=== PATIENT | female | born 1945 | race Caucasian/White ===

== ENCOUNTER 2018-11-03 17:20 | Emergency (ER) | payer OTHER, MEDICAID ==
[~2018-11-03] VITALS: Ht 165.1 cm; Wt 81.6 kg
[~2018-11-03 17:20] MED LIST: ATIVAN0.5 MG; CITALOPRAM20 MG PO; COZAAR50 M1 PO; GOOD NEIGHBOR M25 M1 PO; HYDROCHLOROTHIA25 M1 PO; HYDROCODONE BIT1 T11 PO; IBU800 MG PO; LEVOTHROID0.075 MG; LINZESS145 MC1 PO; LISINOPRIL10 MG; MELOXICAM15 MG PO; NIFEDIPINE ER30 M1 PO; OMEPRAZOLE D/R20 MG; PERCOCET 325 MG1 TA2 PO; PRAVACHOL20 MG; PROCARDIA XL30 MG PO; TRAMADOL HCL50 MG PO; VICO75300; XANAX0.5 MG PO
== END 2018-11-03 17:41 | disposition home or self-care (01) ==
LOC: ED 17:20
DX: S20.161A Insect bite (nonvenomous) of breast, right breast, initial encounter (principal); Z88.6 Allergy status to analgesic agent; Z79.899 Other long term (current) drug therapy; W57.XXXA Bitten or stung by nonvenomous insect and other nonvenomous arthropods, initial encounter; Y93.89 Activity, other specified; Y92.89 Other specified places as the place of occurrence of the external cause; Y99.8 Other external cause status

== ENCOUNTER 2020-08-17 16:32 | Emergency (ER) | payer OTHER, MEDICAID ==
[~2020-08-17] VITALS: Ht 165.1 cm; Wt 72.6 kg
[2020-08-17 20:42] LABS: BASO % 0.8 % (0.0-1.0); EOS % 0.2 % (1.0-4.0); HEMATOCRIT 38.9 % (37.0-47.0); LYMPH # 1.7 10*3/uL (1.3-4.4); LYMPH % 31.6 % (27.0-41.0); MEAN CELL VOLUME 89.2 fl (81.0-99.0); MEAN CORPUSCULAR HGB 28.2 pg (27.0-31.0); MEAN CORPUSCULAR HGB CONC 31.6 g/dl (33.0-37.0); MEAN PLATELET VOLUME 10.1 fl (9.6-12.3); MONO # 0.6 10*3/uL (0.1-1.0); MONO % 11.1 % (3.0-9.0); NEUT % 55.9 % (47.0-73.0); PLATELET COUNT AUTOMATED 211 10*3/uL (130-400); RED BLOOD COUNT 4.36 10*6/uL (4.10-5.10); RED CELL DISTRI WIDTH 13.6 % (0-14.5); WHITE BLOOD COUNT 5.3 10*3/uL (4.8-10.8)
[2020-08-17 20:50] LABS: BILIRUBIN Negative (Negative); BLOOD Negative (Negative); CLARITY Cloudy (Clear); COLOR Dark Yellow (Yellow); GLUCOSE Negative (Negative); KETONE Trace (Negative); LEUKO ESTERASE 2+ (Negative); NITRITE Negative (Negative); PH 5.5 (4.5-8.0); SPECIFIC GRAVITY 1.015 (1.001-1.030); UROBILINOGEN 0.2 E.U./dl (0.0-1.0)
[2020-08-17 20:56] LABS: BACTERIA 1+; RBC 0-2 rbc/hpf (0-2); WBC TNTC wbc/hpf (0-5)
[2020-08-17 20:57] LABS: ALBUMIN 3.1 gm/dl (3.1-4.5); CREATININE 1.35 mg/dL (0.55-1.02); POTASSIUM 3.6 mmol/L (3.5-5.1); TOTAL PROTEIN 7.8 gm/dL (6.4-8.2)
== END 2020-08-18 00:23 | disposition short-term general hospital (02) ==
LOC: ED 16:32
PROVIDERS: Physician Assistant
DX: U07.1 COVID-19 (principal); N20.1 Calculus of ureter; Z98.890 Other specified postprocedural states

== ENCOUNTER → 2020-09-09 | Outpatient (CLI) | payer OTHER, MEDICAID ==
[2020-09-09 18:16] LABS: BASO # 0.1 10*3/uL (0.0-0.1); BASO % 1.6 % (0.0-1.0); EOS # 0.2 10*3/uL (0.0-0.4); EOS % 2.8 % (1.0-4.0); HEMATOCRIT 30.3 % (37.0-47.0); LYMPH # 2.2 10*3/uL (1.3-4.4); LYMPH % 26.9 % (27.0-41.0); MEAN CELL VOLUME 89.6 fl (81.0-99.0); MEAN CORPUSCULAR HGB 28.1 pg (27.0-31.0); MEAN CORPUSCULAR HGB CONC 31.4 g/dl (33.0-37.0); MEAN PLATELET VOLUME 9.4 fl (9.6-12.3); MONO # 0.9 10*3/uL (0.1-1.0); MONO % 10.9 % (3.0-9.0); NEUT # 4.6 10*3/uL (2.3-7.9); NEUT % 56.9 % (47.0-73.0); PLATELET COUNT AUTOMATED 362 10*3/uL (130-400); RED BLOOD COUNT 3.38 10*6/uL (4.10-5.10); RED CELL DISTRI WIDTH 13.2 % (0-14.5); WHITE BLOOD COUNT 8.1 10*3/uL (4.8-10.8)
[2020-09-09 18:30] LABS: BILIRUBIN Negative (Negative); BLOOD 3+ (Negative); CLARITY Cloudy (Clear); COLOR Yellow (Yellow); GLUCOSE Negative (Negative); KETONE Trace (Negative); LEUKO ESTERASE 1+ (Negative); NITRITE Negative (Negative); SPECIFIC GRAVITY 1.025 (1.001-1.030); UROBILINOGEN 0.2 E.U./dl (0.0-1.0)
[2020-09-09 18:45] LABS: ALBUMIN 2.7 gm/dl (3.1-4.5); CREATININE 1.31 mg/dL (0.55-1.02); POTASSIUM 4.1 mmol/L (3.5-5.1); TOTAL PROTEIN 7.7 gm/dL (6.4-8.2)
[2020-09-09 18:49] LABS: BACTERIA 1+; EPITHELIAL CELLS TNTC; RBC TNTC rbc/hpf (0-2)
== END | disposition home or self-care (01) ==
LOC: LAB 17:37
PROVIDERS: ATTEND Urology
DX: Z01.818 Encounter for other preprocedural examination (principal); N39.0 Urinary tract infection, site not specified; J18.9 Pneumonia, unspecified organism

== ENCOUNTER → 2020-09-25 | Outpatient (CLI) | payer OTHER, MEDICAID | END | disposition home or self-care (01) | LOC: RAD 11:08 | PROVIDERS: ATTEND Urology | DX: N20.0 Calculus of kidney (principal); Z96.0 Presence of urogenital implants ==

== ENCOUNTER 2021-10-21 20:13 | Emergency (ER) | payer OTHER, MEDICAID ==
[~2021-10-21] VITALS: Ht 165.1 cm; Wt 81.6 kg
[2021-10-22] MEDS ORDERED: TRAMADOL HCL50 MG PO (00:16)
== END 2021-10-22 00:21 | disposition home or self-care (01) ==
LOC: ED 20:13
DX: S50.02XA Contusion of left elbow, initial encounter (principal); R07.81 Pleurodynia; R07.89 Other chest pain; Z88.8 Allergy status to other drugs, medicaments and biological substances; Z79.899 Other long term (current) drug therapy; Z98.890 Other specified postprocedural states; Z90.49 Acquired absence of other specified parts of digestive tract; Z90.710 Acquired absence of both cervix and uterus; W18.39XA Other fall on same level, initial encounter; Y93.89 Activity, other specified; Y92.89 Other specified places as the place of occurrence of the external cause; Y99.8 Other external cause status

== ENCOUNTER 2021-12-15 21:53 | Emergency (ER) | payer OTHER, MEDICAID ==
[~2021-12-15] VITALS: Ht 165.1 cm; Wt 81.6 kg
== END 2021-12-16 01:05 | disposition home or self-care (01) ==
LOC: ED 21:53
DX: M51.16 Intervertebral disc disorders with radiculopathy, lumbar region (principal); M79.651 Pain in right thigh; Z79.899 Other long term (current) drug therapy; Z96.653 Presence of artificial knee joint, bilateral; Z88.5 Allergy status to narcotic agent; Z88.6 Allergy status to analgesic agent

== ENCOUNTER → 2022-09-26 | Outpatient (CLI) | payer MEDICARE, MEDICAID | END | disposition home or self-care (01) | LOC: RAD 18:28 | PROVIDERS: ATTEND Nurse Practitioner Primary Care | DX: M16.0 Bilateral primary osteoarthritis of hip (principal); M25.751 Osteophyte, right hip; M25.752 Osteophyte, left hip; M25.852 Other specified joint disorders, left hip; M25.851 Other specified joint disorders, right hip ==

== ENCOUNTER 2024-12-17 22:48 | Inpatient (IN) | payer OTHER ==
[~2024-12-17] VITALS: Ht 165.1 cm; Wt 91.4 kg
[2024-12-17 22:57] VITALS: BP 170/76
[2024-12-17 23:08] LABS: HEMATOCRIT 40.4 % (37.0-47.0); MANUAL DIFF REFLEX YES; MEAN CELL VOLUME 89.4 fl (81.0-99.0); MEAN CORPUSCULAR HGB 27.7 pg (27.0-31.0); MEAN CORPUSCULAR HGB CONC 30.9 g/dl (33.0-37.0); MEAN PLATELET VOLUME 9.2 fl (9.6-12.3); PLATELET COUNT AUTOMATED 416 10*3/uL (130-400); RED BLOOD COUNT 4.52 10*6/uL (4.10-5.10); RED CELL DISTRI WIDTH 14.3 % (0-14.5); WHITE BLOOD COUNT 19.9 10*3/uL (4.8-10.8)
[2024-12-17 23:31] LABS: TOTAL PROTEIN 7.7 gm/dL (6.0-8.0)
[2024-12-17 23:34] LABS: PLATELET SUFFICIENCY NORMAL (NORMAL); TOTAL CELLS COUNTED 100 #CELLS
[2024-12-18] MEDS ORDERED: Ondansetron Hydrochloride 4 MG/2 ML VIAL IV ONE (00:10)
[2024-12-18] MEDS ORDERED: SODIUM CHLORIDE 0.9% 1,000 ML IV ONE (00:10)
[2024-12-18] MEDS ORDERED: diazePAM 10 MG/2 ML SYR IV ONE ×2 (00:45→02:50)
[2024-12-18] MEDS ORDERED: BISACODYL 10 MG SUPP R PRN (03:05)
[2024-12-18] MEDS ORDERED: TEMAZEPAM 15 MG CAP PO PRN (03:05)
[2024-12-18] MEDS ORDERED: Magnesium Hydroxide 30 ML UDC PO PRN (03:05)
[2024-12-18] MEDS ORDERED: Ondansetron Hydrochloride 4 MG/2 ML VIAL IV PRN (03:05)
[2024-12-18] MEDS ORDERED: BISACODYL 5 MG TAB PO PRN (03:05)
[2024-12-18] MEDS ORDERED: ACETAMINOPHEN 650 MG SUPP R PRN (03:05)
[2024-12-18] MEDS ORDERED: ACETAMINOPHEN 325 MG TAB PO PRN (03:05)
[2024-12-18] MEDS ORDERED: SODIUM CHLORIDE 0.9% 1,000 ML IV SCH (03:10)
[2024-12-18 03:36] LABS: HEMATOCRIT 40.3 % (37.0-47.0); MEAN CORPUSCULAR HGB 27.7 pg (27.0-31.0); MEAN CORPUSCULAR HGB CONC 30.8 g/dl (33.0-37.0); MEAN PLATELET VOLUME 9.2 fl (9.6-12.3); PLATELET COUNT AUTOMATED 397 10*3/uL (130-400); RED BLOOD COUNT 4.48 10*6/uL (4.10-5.10); RED CELL DISTRI WIDTH 14.3 % (0-14.5); WHITE BLOOD COUNT 20.4 10*3/uL (4.8-10.8)
[2024-12-18 03:42] LABS: MANUAL DIFF REFLEX YES
[2024-12-18] MEDS ORDERED: PAROXETINE20 MG PO (03:45)
[2024-12-18 04:02] LABS: PLATELET SUFFICIENCY NORMAL (NORMAL); TOTAL CELLS COUNTED 100 #CELLS
[2024-12-18 04:10] LABS: FREE T4 0.89 ng/dl (0.89-1.76); POTASSIUM 4.2 mmol/L (3.4-5.1)
[2024-12-18 04:15] VITALS: BP 182/80
[2024-12-18] MEDS ORDERED: WIXELA 250-501 EACH INH (04:36)
[2024-12-18] MEDS ORDERED: PRAVASTATIN SOD80 MG PO (04:36)
[2024-12-18] MEDS ORDERED: Labetalol Hydrochloride 20 MG/4 ML SYR IV ONE (04:50)
[2024-12-18] MEDS ORDERED: fentaNYL CITRATE 100 MCG/2 ML VIAL IV PRN (05:45)
[2024-12-18 05:54] VITALS: BP 160/78
[2024-12-18] MEDS ORDERED: Piperacillin Sodium/Tazobact 50 ML IV SCH (06:00)
[2024-12-18 06:41] LABS: VITAMIN D, 25-HYDROXY 33.2 ng/mL (30-100)
[2024-12-18 08:00] VITALS: BP 165/73
[2024-12-18] MEDS ORDERED: ACETAMINOPHEN 60 ML IV ONE (09:50)
[2024-12-18] MEDS ORDERED: Enoxaparin Sodium 40 MG/0.4 ML SYR SC SCH (10:00)
[2024-12-18 11:42] LABS: BILIRUBIN Negative (Negative); BLOOD Trace-Lysed (Negative); CLARITY Clear (Clear); COLOR Yellow (Yellow); GLUCOSE Negative (Negative); KETONE Negative (Negative); LEUKO ESTERASE 2+ (Negative); NITRITE Negative (Negative); PH 5.5 (4.5-8.0); SPECIFIC GRAVITY 1.015 (1.001-1.030); UROBILINOGEN 0.2 E.U./dl (0.0-1.0)
[2024-12-18] MEDS ORDERED: IOHEXOL 9 MG/ML (IODINE) ORAL SOLUTION PO ONE (11:55)
[2024-12-18 11:57] LABS: BACTERIA 1+; WBC 21-30 wbc/hpf (0-5)
[2024-12-18 12:00] VITALS: BP 159/67
[2024-12-18] MEDS ORDERED: BARIUM SULFATE 2% 450 ML BOT PO SCH (12:00)
[2024-12-18] MEDS ORDERED: Piperacillin Sodium/Tazobact 2.25 GM in SODIUM CHLORIDE 0.9% 50 ML IV SCH ×2 (12:00→20:00)
[2024-12-18] MEDS ORDERED: IOHEXOL 300 MG/ML 100 ML VIAL IV ONE (13:15)
[2024-12-18] MEDS ORDERED: ACETAMINOPHEN 60 ML IV PRN (15:35)
[2024-12-18 16:00] VITALS: BP 169/60
[2024-12-18] MEDS ORDERED: DEXTROSE 5% IN LACTATED RINGER 1,000 ML IV SCH (18:10)
[2024-12-18 20:00] VITALS: BP 155/69
[2024-12-19] VITALS: BP 156/65
[2024-12-19] MEDS ORDERED: Levothyroxine Sodium 100 MCG VIAL IV SCH (06:00)
[2024-12-19 06:35] LABS: BASO # 0.1 10*3/uL (0.0-0.1); BASO % 0.8 % (0.0-1.0); EOS # 0.3 10*3/uL (0.0-0.4); EOS % 2.8 % (1.0-4.0); HEMATOCRIT 32.5 % (37.0-47.0); MEAN CELL VOLUME 90.5 fl (81.0-99.0); MEAN PLATELET VOLUME 9.6 fl (9.6-12.3); MONO % 8.6 % (3.0-9.0); NEUT # 8.6 10*3/uL (2.3-7.9); NEUT % 72.4 % (47.0-73.0); PLATELET COUNT AUTOMATED 325 10*3/uL (130-400); RED BLOOD COUNT 3.59 10*6/uL (4.10-5.10); RED CELL DISTRI WIDTH 14.6 % (0-14.5); WHITE BLOOD COUNT 11.8 10*3/uL (4.8-10.8)
[2024-12-19 07:10] LABS: POTASSIUM 3.5 mmol/L (3.4-5.1); TOTAL PROTEIN 5.9 gm/dL (6.0-8.0)
[2024-12-19 08:05] VITALS: BP 156/50
[2024-12-19] MEDS ORDERED: Albuterol Sulf/Ipratropium 3 ML VIAL NEB SCH (10:15)
[2024-12-19 12:00] VITALS: BP 141/57
[2024-12-19] MEDS ORDERED: LORazepam 0.5 MG TAB PO PRN (12:20)
[2024-12-19] MEDS ORDERED: Metoprolol Tartrate 25 MG TAB PO SCH (14:55)
[2024-12-19 16:00] VITALS: BP 130/68
[2024-12-19 20:00] VITALS: BP 144/45
[2024-12-19] MEDS ORDERED: Losartan Potassium 50 MG TAB PO SCH (22:00)
[2024-12-20] VITALS: BP 142/54
[2024-12-20] MEDS ORDERED: OMEPRAZOLE 20 MG CAP PO SCH (06:00)
[2024-12-20] MEDS ORDERED: Levothyroxine Sodium 75 MCG TAB PO SCH (06:00)
[2024-12-20 06:53] LABS: POTASSIUM 3.4 mmol/L (3.4-5.1); TOTAL PROTEIN 5.9 gm/dL (6.0-8.0)
[2024-12-20 08:00] VITALS: BP 143/50
[2024-12-20] MEDS ORDERED: LINACLOTIDE 145 MCG CAP PO SCH (10:00)
[2024-12-20] MEDS ORDERED: PARoxetine Hydrochloride 20 MG TAB PO SCH (10:00)
[2024-12-20] MEDS ORDERED: hydroCHLOROthiazide 25 MG TAB PO SCH (10:00)
[2024-12-20] MEDS ORDERED: ATORVASTATIN CALCIUM 20 MG TAB PO SCH (10:00)
== END 2024-12-20 12:36 | disposition home or self-care (01) | DRG 872 ==
LOC: ED 22:48 → 5E 12-18 02:56 → EDHOLD 12-18 02:56 → 5E 12-18 03:37
PROVIDERS: Internal Medicine; Student in an Organized Health Care Education/Training Program; ADMIT Internal Medicine; ATTEND Internal Medicine
PROC: 0D9670Z Drainage of Stomach with Drainage Device, Via Natural or Artificial Opening (ICD-10-PCS; principal; 2024-12-18)
DX: A41.9 Sepsis, unspecified organism (principal); N20.1 Calculus of ureter; K56.609 Unspecified intestinal obstruction, unspecified as to partial versus complete obstruction; K56.7 Ileus, unspecified; K52.9 Noninfective gastroenteritis and colitis, unspecified; K21.9 Gastro-esophageal reflux disease without esophagitis; N18.32 Chronic kidney disease, stage 3b; J44.9 Chronic obstructive pulmonary disease, unspecified; E03.9 Hypothyroidism, unspecified; F41.9 Anxiety disorder, unspecified; E66.9 Obesity, unspecified; R73.9 Hyperglycemia, unspecified; E78.5 Hyperlipidemia, unspecified; I12.9 Hypertensive chronic kidney disease with stage 1 through stage 4 chronic kidney disease, or unspecified chronic kidney disease; J45.909 Unspecified asthma, uncomplicated; Z96.653 Presence of artificial knee joint, bilateral; Z88.8 Allergy status to other drugs, medicaments and biological substances; Z91.09 Other allergy status, other than to drugs and biological substances; Z79.899 Other long term (current) drug therapy; Z79.01 Long term (current) use of anticoagulants; Z79.2 Long term (current) use of antibiotics; Z98.42 Cataract extraction status, left eye; Z98.41 Cataract extraction status, right eye; Z98.891 History of uterine scar from previous surgery; Z90.49 Acquired absence of other specified parts of digestive tract; Z90.711 Acquired absence of uterus with remaining cervical stump; Z82.49 Family history of ischemic heart disease and other diseases of the circulatory system; Z86.711 Personal history of pulmonary embolism; Z80.0 Family history of malignant neoplasm of digestive organs; Z68.33 Body mass index [BMI] 33.0-33.9, adult